=== PATIENT | male | born 1930 | race Two or more races ===

== ENCOUNTER → 2017-03-16 | Outpatient (CLI) | payer MEDICARE ==
[2017-03-16 09:26] LABS: Basophils # (auto) 0 uL; Basophils % (auto) 0.6 % (0.0-2.0); CONDITION Y; Eosinophils # (auto) 0.2 uL; Eosinophils % (auto) 4.5 % (0.0-7.0); Hemoglobin 14.5 g/dL (13.5-17.5); Lymphocytes # (auto) 2.2 uL; Lymphocytes % (auto) 40.2 % (10.0-50.0); Mean Corpuscular Hemoglobin 33.5 pg (28.0-32.0); Mean Corpuscular Hgb Conc. 33.8 g/dL (32.0-36.0); Mean Corpuscular Volume 99.2 fL (80.0-100.0); Mean Platelet Volume 7.8 fL (7.4-10.4); Monocytes # (auto) 0.6 uL; Monocytes % (auto) 10.4 % (0.0-12.0); Neutrophils # (auto) 2.4 uL; Neutrophils % (auto) 44.3 % (37.0-80.0); Platelet Count (auto) 248 10^3/uL (140-450); Red Cell Distribution Width 15.5 % (11.6-16.0); Urine Bilirubin Negative (Negative); Urine Blood Negative /uL (Negative); Urine Color Yellow (Yellow); Urine Glucose Normal (Normal); Urine Ketone Negative (Negative); Urine Nitrite Negative (Negative); Urine RBC 1 /hpf (0 - 3); Urine Squamous Epithelial Cell FEW /hpf (<5); Urine Urobilinogen Normal (Negative); Urine pH 7.5 (5.0-8.0); White Blood Cell 5.5 10^3/uL (4.4-10.8)
[2017-03-16 09:51] LABS: Albumin 3.6 g/dL (3.4-5.0); BUN/Creatinine Ratio 33.3; Bilirubin, Total 0.8 mg/dL (0.2-1.0); Potassium 4.4 mmol/L (3.5-5.1); Total Protein 6.9 g/dL (6.4-8.2)
== END | disposition home or self-care (01) ==
LOC: LAB 08:19
PROVIDERS: ATTEND Internal Medicine
DX: Z00.00 Encounter for general adult medical examination without abnormal findings (principal); I10 Essential (primary) hypertension; E78.2 Mixed hyperlipidemia; E55.9 Vitamin D deficiency, unspecified
CPT/HCPCS: 36415; 80053; 80061; 81001; 82306; 84153; 84443; 85025

== ENCOUNTER 2017-04-29 16:50 | Emergency (ER) | payer OTHER ==
[~2017-04-29] VITALS: Ht 170.2 cm; Wt 54.4 kg
[2017-04-29] MEDS ORDERED: KETOROLAC TROMETH 60MG/2ML VIAL IM ONE (19:30)
[2017-04-29] MEDS ORDERED: TETANUS-DIPTH-ACEL PERTUSSIS 0.5ML SYRG IM ONE (19:30)
[2017-04-29] MEDS ORDERED: BACITRACIN TOP OINT 1 UD PKG TOP ONE (19:30)
[2017-04-29 20:00] VITALS: BP 106/58
[2017-04-29] MEDS ORDERED: NEOMYCIN-BACITRACIN-POLYM 15GM TOP OINT TOP ONE (20:22)
== END 2017-04-29 20:52 | disposition home or self-care (01) ==
LOC: EDBD 16:50 → ER 16:58
DX: S01.01XA Laceration without foreign body of scalp, initial encounter (principal); E03.9 Hypothyroidism, unspecified; W11.XXXA Fall on and from ladder, initial encounter; Y93.89 Activity, other specified; Y99.8 Other external cause status; Y92.89 Other specified places as the place of occurrence of the external cause
CPT/HCPCS: 12004; 70450; 72125; 82962; 90471; 90715; 96372; 99284; J1885

== ENCOUNTER 2019-12-10 12:23 | Inpatient (IN) | payer OTHER, MEDICAID ==
[~2019-12-10] VITALS: Ht 157.5 cm; Wt 52.4 kg
[2019-12-10] MEDS ORDERED: FLEET ENEMA(ADULT) 135 ML PR ONE (14:30)
[2019-12-10 15:31] LABS: Urine Bacteria FEW /hpf (None Seen); Urine Blood 2+ /uL (Negative); Urine Mucus MODERATE (None Seen); Urine WBC 22 /hpf (0 - 3)
[2019-12-10 15:44] LABS: Basophils # (auto) 0 10 ^3/uL (0-0.2); Basophils % (auto) 0.2 % (0.0-2.0); Eosinophils # (auto) 0 10 ^3/uL (0-0.8); Hematocrit 44.3 % (41.0-53.0); Hemoglobin 15.2 g/dL (13.5-17.5); Lymphocytes # (auto) 1.4 10 ^3/uL (0.4-5.4); Lymphocytes % (auto) 7.1 % (10.0-50.0); Mean Corpuscular Hemoglobin 33.7 pg (28.0-32.0); Mean Corpuscular Hgb Conc. 34.2 g/dL (32.0-36.0); Mean Corpuscular Volume 98.5 fL (80.0-100.0); Monocytes # (auto) 1.4 10 ^3/uL (0-1.3); Monocytes % (auto) 7.4 % (0.0-12.0); Neutrophils # (auto) 16.3 10 ^3/uL (1.6-8.6); Neutrophils % (auto) 85.3 % (37.0-80.0); Platelet Count (auto) 208 10^3/uL (140-450); Red Blood Cells 4.49 10^6/uL (4.5-5.90); Red Cell Distribution Width 14.3 % (11.8-14.3); White Blood Cell 19.1 10^3/uL (4.4-10.8)
[2019-12-10] MEDS ORDERED: MORPHINE SULF INJ 2 MG/ML SYRINGE 1ML IV ONE (15:45)
[2019-12-10] MEDS ORDERED: SODIUM CHLORIDE 0.9% 1,000 ML IV ONE (15:45)
[2019-12-10] MEDS ORDERED: ONDANSETRON HCL 4 MG/2 ML VIAL IV ONE (16:00)
[2019-12-10] MEDS ORDERED: HYDROcodone-ACET 5/325MG TAB PO ONE (16:00)
[2019-12-10 16:01] LABS: Albumin 3.4 g/dL (3.4-5.0); Calcium 8.4 mg/dL (8.5-10.1); Potassium 3.8 mmol/L (3.5-5.1)
[2019-12-10 16:04] LABS: BUN/Creatinine Ratio 19.7; Bilirubin, Total 1.5 mg/dL (0.2-1.0); Total Protein 7.1 g/dL (6.4-8.2)
[2019-12-10] MEDS ORDERED: MORPHINE SULF INJ 2 MG/ML SYRINGE 1ML IV PRN (16:15)
[2019-12-10] MEDS ORDERED: NITROGLYCERIN 0.4 MG SL TAB SL PRN (16:15)
[2019-12-10] MEDS ORDERED: SODIUM CHLORIDE 0.9% 500 ML IV ONE ×2 (16:30→19:45)
[2019-12-10] MEDS ORDERED: BISACODYL 10 MG RECT SUPP PR PRN (16:30)
[2019-12-10] MEDS ORDERED: ONDANSETRON HCL 4 MG/2 ML VIAL IV PRN (16:30)
[2019-12-10] MEDS ORDERED: BISACODYL 10 MG RECT SUPP PR ONE (16:30)
[2019-12-10] MEDS ORDERED: HYDROcodone-ACET 5/325MG TAB PO PRN (16:30)
[2019-12-10] MEDS ORDERED: LEVO88TA4 PO (17:54)
[2019-12-10 18:01] LABS: INR 1.25 (0.9-1.15); Partial Thromboplastin Time 38.5 sec (23.64-32.05)
[2019-12-10 18:05] VITALS: BP 90/52
--- NOTE | 2019-12-10 18:05 | NUR ---
Telemetry admit from [facility] admitted to Telemetry unit. Patient oriented to [facility] RN primary RN, unit, room, bed, and unit policies regarding patient care and visiting hours. Patient currently not connected to Tele monitor. Will request Tele box. Patient weighed by bedscale, and encouraged to call if they need something. All questions and concerns addressed, patient verbalized understanding.
--- NOTE | 2019-12-10 18:25 | NUR ---
Tele box requested, awaiting response.
[2019-12-10] MEDS: SODIUM CHLORIDE 0.9% 1,000 ML IV SCH (18:42)
--- NOTE | 2019-12-10 18:50 | NUR ---
Re: Tele monitor Tele box # [id number] received, patient connected to monitor. Patients current heart rhythm is A-fib, HR 158, BP 90/56. Cardiology RAILROAD WATCHMAN Hannah made aware.
[2019-12-10] MEDS: cefTRIAXone 1GM/50ML D5W 50 ML IV SCH (19:00)
[2019-12-10] MEDS ORDERED: DIGOXIN (250MCG/ML) 2 ML AMPULE IV ONE (19:45)
[2019-12-10] MEDS: TAMSULOSIN HYDROCHLORIDE 0.4 MG CAP PO SCH (19:46)
--- NOTE | 2019-12-10 20:11 | NUR ---
EKG DONE, AFIB W/RVR 130-140S FIELD CROP FARMER SPANN AT BEDSIDE AND MADE AWARE. RECEIVED ORDER FOR DIGOXIN 500MCG IVP PRESCRIBED. PATIENT TOLERATED WELL, HR CAME DOWN 110-120S. RECEIVED ORDERS FOR BOLUS 500ML NS BOLUS, INITIATED BOLUS. WILL CONTINUE TO MONITOR PATIENT.
[2019-12-10 21:38] VITALS: BP 99/56
[2019-12-10 22:00] VITALS: BP 99/56
[2019-12-10] MEDS: ACETAMINOPHEN 500 MG TAB PO PRN (22:15)
[2019-12-10] MEDS: metroNIDAZOLE 500MG/100ML 100 ML IV SCH (22:15)
[2019-12-10] MEDS: CARVEDILOL 3.125 MG TAB PO SCH (22:16)
[2019-12-10] MEDS: ENOXAPARIN SOD 60 MG/0.6 ML SYRINGE SC SCH (22:19)
[2019-12-11] MEDS: DIGOXIN (250MCG/ML) 2 ML AMPULE IV SCH ×3 (01:00→13:00)
--- NOTE | 2019-12-11 01:00 | NUR ---
HELD DIGOXIN HR SR 70S.
--- NOTE | 2019-12-11 02:31 | NUR ---
PATIENT GETTING OUT OF BED ALARM GOING OFF. PATIENT STATES HE JUST WANTED TO SIT UP IN BED. REORIENTED PATIENT AND PLAN OF CARE PATIENT STATES HE WILL GO BACK TO BED. BED ALARM PLACED.
[2019-12-11 05:00] VITALS: BP 86/46
[2019-12-11 05:01] LABS: Basophils # (auto) 0 10 ^3/uL (0-0.2); Basophils % (auto) 0.1 % (0.0-2.0); Eosinophils # (auto) 0 10 ^3/uL (0-0.8); Eosinophils % (auto) 0.1 % (0.0-7.0); Hematocrit 37.7 % (41.0-53.0); Hemoglobin 12.7 g/dL (13.5-17.5); Lymphocytes # (auto) 1.3 10 ^3/uL (0.4-5.4); Lymphocytes % (auto) 8.7 % (10.0-50.0); Mean Corpuscular Hemoglobin 33.4 pg (28.0-32.0); Mean Corpuscular Hgb Conc. 33.8 g/dL (32.0-36.0); Mean Corpuscular Volume 98.9 fL (80.0-100.0); Monocytes # (auto) 1.2 10 ^3/uL (0-1.3); Monocytes % (auto) 8.1 % (0.0-12.0); Platelet Count (auto) 175 10^3/uL (140-450); Red Blood Cells 3.81 10^6/uL (4.5-5.90); Red Cell Distribution Width 14.5 % (11.8-14.3); White Blood Cell 14.5 10^3/uL (4.4-10.8)
[2019-12-11] MEDS: SODIUM CHLORIDE 0.9% 1,000 ML IV SCH ×2 (05:03→12:18)
[2019-12-11] MEDS: metroNIDAZOLE 500MG/100ML 100 ML IV SCH (05:03)
[2019-12-11 05:21] LABS: Potassium 3.9 mmol/L (3.5-5.1)
[2019-12-11 05:25] LABS: BUN/Creatinine Ratio 31.8; Calcium 7.5 mg/dL (8.5-10.1)
--- NOTE | 2019-12-11 06:53 | NUR ---
VENOUS US BLE AT BEDSIDE TO R/O DVT PATIENT D-DIMER ELEVATED 1.61
--- NOTE | 2019-12-11 06:55 | NUR ---
PATIENT ORDER FOR DIGOXIN DUE AT 0700 BEING HELD HR SR 70-90 W EXERTION.
--- NOTE | 2019-12-11 07:15 | NUR ---
Opening shift note Assumed care from NOC RN. Patient is AOx4, no s/s of SOB, distress or pain noted at this time. Bed is in lowest locked position, call light is within reach, and side rails are up x2. Updated patient on plan of care and patient verbalized understanding. I will continue to monitor Q1hr and PRN.
[2019-12-11 08:55] VITALS: BP 80/38
[2019-12-11] MEDS ORDERED: cefTRIAXone 1GM/50ML D5W 50 ML IV SCH (09:00)
--- NOTE | 2019-12-11 09:00 | NUR ---
Low B/P VS, BP was 77/42, rechecked was 80/38, HR 89 bpm. Patient is asymptomatic no s/s of distress noted at this time. I will reassess the patient PRN.
--- NOTE | 2019-12-11 09:30 | NUR ---
B/P Reassessment VS 77/40 heart rate is 69. Held scheduled Coreg, i will continue to monitor Q1HR and PRN.
--- NOTE | 2019-12-11 09:40 | NUR ---
B/P reassessment BP now at 88/55 patient is still asymptomatic, and receiving normal saline at 100ml. I will continue to monitor q1hr and PRN.
--- NOTE | 2019-12-11 09:47 | NUR ---
Received call from MD Dr. Boudreaux called regarding potential surgery this afternoon or tomorrow morning. Per MD patient needs to be cleared by cardiology for surgery, I will contact WILLAM Bowser regarding clearance.
[2019-12-11] MEDS: ENOXAPARIN SOD 60 MG/0.6 ML SYRINGE SC SCH ×2 (09:51→21:43)
[2019-12-11] MEDS: PANTOPRAZOLE 40 MG/10 ML VIAL INJ IV SCH (09:51)
[2019-12-11] MEDS: cefTRIAXone 1GM/50ML D5W 50 ML IV SCH (09:51)
[2019-12-11] MEDS: CARVEDILOL 3.125 MG TAB PO SCH ×2 (09:52→21:47)
[2019-12-11] MEDS ORDERED: FAMOTIDINE 20 MG TAB PO SCH (10:00)
--- NOTE | 2019-12-11 10:18 | NUR ---
Provider Rounding Spoke with DESIZING MACHINE OPERATOR Niels, per DESIZING MACHINE OPERATOR patient is still under cardiac work up for clearance. Per DESIZING MACHINE OPERATOR patient is to have B/P monitored 3 consecutive times for hypotension, repeat EKG done today, and have an echo done. I will follow through with orders.
[2019-12-11] MEDS ORDERED: PIPERACILLIN-TAZO 4.5GM 100 ML IV ONE (10:45)
--- NOTE | 2019-12-11 12:00 | NUR ---
Noon Vitals Patients B/P is at 94/46 and heart rate is 69 bpm. Patient is asymptomatic, i will continue to monitor Q1HR and PRN.
--- NOTE | 2019-12-11 12:30 | NUR ---
B/P Reassessment. B/P is not at 82/53, HR is at 116. Patient is asymptomatic. I will updated MUSCULOSKELETAL PHYSIOTHERAPIST Bowser and continue to monitor patient Q1HR and PRN.
[2019-12-11 12:33] VITALS: BP 94/46
--- NOTE | 2019-12-11 12:50 | NUR ---
Dr. Boudreaux at bedside MD updated patient on surgery being planned for tomorrow. Patient verbalized understanding. Per MD patient is to be NPO, i will follow through.
--- NOTE | 2019-12-11 13:00 | NUR ---
Provider Rounding PRESS BOX CUSTODIAN Niels rounding, i updated her on patient status . Per PRESS BOX CUSTODIAN patient may need treatment for low B/P. No new orders at this time.
[2019-12-11 13:56] LABS: BUN/Creatinine Ratio 31.5; Calcium 7.6 mg/dL (8.5-10.1)
--- NOTE | 2019-12-11 14:10 | NUR ---
Received call PLATER HOT DIP Niels called per PLATER HOT DIP patient is to be transferred to [facility] to treat hypotension. I will follow through with orders.
[2019-12-11] MEDS ORDERED: NOREPINEPHRINE 8 MG/250ML KIT 250 ML IV SCH ×3 (14:15→17:45)
--- NOTE | 2019-12-11 16:30 | NUR ---
Patient tore out IV site while walking to the restroom, I will insert new IV access.
--- NOTE | 2019-12-11 16:45 | NUR ---
IV insertion IV access obtained, via clean sterile technique by inserting 22 gauge catheter at LFA after 1 attempt. IV secured properly. No trauma to site. Patient tolerated well.
[2019-12-11 16:59] VITALS: BP 98/54
--- NOTE | 2019-12-11 17:40 | NUR ---
Spoke with family Spoke with patients granddaughter, updated her on plan of care. She verbalized understanding.
[2019-12-11] MEDS: TAMSULOSIN HYDROCHLORIDE 0.4 MG CAP PO SCH (18:00)
--- NOTE | 2019-12-11 18:00 | NUR ---
B/P Assessment Patients blood pressure is 105/55, HR 89. Patient is asymptomatic. Patient is on NS at 100ml/ hr.
[2019-12-11] MEDS: PIPERACILLIN-TAZO 4.5GM 100 ML IV SCH ×2 (18:49→21:42)
--- NOTE | 2019-12-11 19:07 | NUR ---
Closing shift note Endorsed care to NOC RN. Patient is AOx4 no S/S of pain or distress noted at this time.
[2019-12-11] MEDS: MORPHINE SULF INJ 2 MG/ML SYRINGE 1ML IV PRN (19:58)
[2019-12-11 20:06] VITALS: BP 102/58
--- NOTE | 2019-12-11 21:03 | NUR ---
OBTAINED TELEPHONE CONSENT FROM SPOUSE ALVIN COREY FOR PATIENT TO HAVE LAPRASCOPIC POSSIBLY OPEN CHOLECYSTECTOMY WITH ANESTHESIA AND POSSIBLE TRANFUSION OF BLOOD AND BLOOD PRODUCTS IF NEEDED. SPOUSE ALVIN VERBALIZES UNDERSTANDING NO QUESTIONS ASKED.
[2019-12-11 21:33] VITALS: BP_SYST 93; BP_SYST 98; BP_DIAS 49; BP_DIAS 62
[2019-12-12 05:00] VITALS: BP 109/59
[2019-12-12] MEDS: SODIUM CHLORIDE 0.9% 1,000 ML IV SCH ×3 (05:20→21:15)
[2019-12-12 05:26] LABS: Basophils # (auto) 0 10 ^3/uL (0-0.2); Basophils % (auto) 0.1 % (0.0-2.0); Eosinophils # (auto) 0 10 ^3/uL (0-0.8); Eosinophils % (auto) 0.1 % (0.0-7.0); Hematocrit 36.1 % (41.0-53.0); Hemoglobin 12.2 g/dL (13.5-17.5); Lymphocytes # (auto) 0.8 10 ^3/uL (0.4-5.4); Lymphocytes % (auto) 6.4 % (10.0-50.0); Mean Corpuscular Hemoglobin 33.3 pg (28.0-32.0); Mean Corpuscular Hgb Conc. 33.7 g/dL (32.0-36.0); Monocytes # (auto) 1.2 10 ^3/uL (0-1.3); Monocytes % (auto) 9.9 % (0.0-12.0); Neutrophils # (auto) 9.9 10 ^3/uL (1.6-8.6); Neutrophils % (auto) 83.5 % (37.0-80.0); Platelet Count (auto) 183 10^3/uL (140-450); Red Blood Cells 3.65 10^6/uL (4.5-5.90); Red Cell Distribution Width 14.3 % (11.8-14.3); White Blood Cell 11.8 10^3/uL (4.4-10.8)
[2019-12-12] MEDS: PIPERACILLIN-TAZO 4.5GM 100 ML IV SCH ×3 (05:29→21:16)
[2019-12-12] MEDS: MORPHINE SULF INJ 2 MG/ML SYRINGE 1ML IV PRN ×3 (05:30→19:26)
[2019-12-12 05:44] LABS: Albumin 2.3 g/dL (3.4-5.0); Calcium 7.4 mg/dL (8.5-10.1); Potassium 3.7 mmol/L (3.5-5.1)
[2019-12-12 05:49] LABS: BUN/Creatinine Ratio 31.3; Bilirubin, Total 1.3 mg/dL (0.2-1.0)
--- NOTE | 2019-12-12 07:20 | NUR ---
Opening shift note Care of patient assumed from NOC RN Emma. Patient is AOX4 no s/s of distress, sob or pain noted. tourist camp attendant at bedside. Bed is in lowest locked position, side rails up x2, and call light is within reach. Updated patient on plan of care, i will continue to monitor q1hr and PRN.
--- NOTE | 2019-12-12 09:50 | NUR ---
Patient off unit Patient taken to pre-op in hospital bed with assistance from YOSSI Juarez. No s/s of distress noted at time of departure.
[2019-12-12] MEDS ORDERED: ceFAZolin 1GM/50ML 50 ML IV ONE (09:58)
[2019-12-12] MEDS: ENOXAPARIN SOD 60 MG/0.6 ML SYRINGE SC SCH ×2 (10:00→21:17)
[2019-12-12] MEDS ORDERED: ROCURONIUM 10MG/ML 10ML VIAL IV ONE (10:00)
[2019-12-12] MEDS: CARVEDILOL 3.125 MG TAB PO SCH ×2 (10:00→14:24)
[2019-12-12] MEDS: PANTOPRAZOLE 40 MG/10 ML VIAL INJ IV SCH (10:00)
--- NOTE | 2019-12-12 10:44 | NUR ---
Patient is down in OR for a procedure. Addendum: 12/12/19 at 1120 by ARDEN SIGALA RN Amended: Links added.
--- NOTE | 2019-12-12 11:44 | NUR ---
patient off unit for surgery. Addendum: 12/12/19 at 1522 by ARDEN SIGALA RN Amended: Links added.
[2019-12-12] MEDS ORDERED: ETOMIDATE (2MG/ML) 20ML VIAL IV ONE (11:46)
[2019-12-12] MEDS ORDERED: LIDOCAINE 1% (LOCAL ANESTH.) PF 5ml SDV ONE (11:48)
[2019-12-12] MEDS ORDERED: SUCCINYLCHOLINE CHLORIDE 20 MG/ML 10ML VIAL IV ONE (11:48)
[2019-12-12] MEDS ORDERED: fentaNYL CITRATE 100 MCG/2 ML VL ONE (12:08)
[2019-12-12] MEDS ORDERED: ONDANSETRON HCL 4 MG/2 ML VIAL IV PRN (12:15)
[2019-12-12] MEDS ORDERED: NALOXONE HCL 0.4 MG/ML VIAL IV PRN (12:15)
[2019-12-12] MEDS ORDERED: HYDROmorphone HCL 2 MG/ML VL IV PRN ×2 (12:15)
[2019-12-12] MEDS ORDERED: DEXTROSE 50% SYRINGE 50 ML IV ONE (12:43)
--- NOTE | 2019-12-12 13:42 | NUR ---
Received report Velma THOMAS from PACU gave me post op report. Patient is status post laparoscopy-cholecystomy. Patient has an abdominal binder on, and telfa gauze with Tegaderm over 3 incisions, left lower quadrant has a JOSHUA drain that has output 45ml of sanguinous fluid, JOSHUA dressing was reinforced with extra gauze. Patient is on 1l NC with O2 saturation of 98% Patients vitals are 122/61, HR 70 bpm.
--- NOTE | 2019-12-12 13:50 | NUR ---
Patient back on unit patient brought back up to floor by WILLIAM Buckner. Assessed incision with Sita at bedside. Undid binder and 3 abdominal incision noted. Each with telfa gauze and Tegaderm in place and they are clean dry and intact. Left lower abdominal incision has a JOSHUA drain that is draining serous fluid, dressing reinforced with gauze d/t moderate serosanguineous leakage. Abdominal binder was placed again. I will continue to monitor q1hr and PRN.
--- NOTE | 2019-12-12 13:52 | NUR ---
POST OP VITALS Patient is AOx4, No s/s of distress noted. Post op vitals were 136/80, hr 76 bpm, 18 Respirations, and o2 saturation of 98% on room air. Patient complains of 9/10 pain. I will provide pain medication as ordered. I will continue to monitor Q1hr and PRN.
--- NOTE | 2019-12-12 14:50 | NUR ---
NANI rodríguez regarding patient returning from OR. Awaiting call back.
[2019-12-12 17:00] VITALS: BP 122/60
[2019-12-12] MEDS: TAMSULOSIN HYDROCHLORIDE 0.4 MG CAP PO SCH (18:21)
--- NOTE | 2019-12-12 19:15 | NUR ---
end of shift note care of patient endorsed to noc WILLIAM rosales. No s/s of distress noted at this time.
--- NOTE | 2019-12-12 19:26 | NUR ---
Opening Shift Note Assumed care of patient, awake and alert. No S/S of distress/SOB or pain. Instructed on POC and to call for assist PRN, will continue to monitor for changes Q1hr and PRN.
--- NOTE | 2019-12-12 19:45 | NUR ---
PAIN PATIENT C/O 10/10 ABDOMINAL PAIN REQUESTING PAIN MEDICATION. PATIENT S/P LAPRASCOPIC CHOLECYSTECTOMY. ADMINISTERED MORPHINE 1MG IV PRESCRIBED. PATIENT TOLERATED WELL, SITTER AT BEDSIDE FOR PATIENT SAFETY WILL CONTINUE TO MONITOR PATIENT.
--- NOTE | 2019-12-12 20:30 | NUR ---
PATIENT BELONGINGS SPOKE WITH DAUGHTER PA ON THE PHONE REGARDING PATIENT STATUS, PLAN OF CARE, AND PATIENT BELONGINGS. DAUGHTER STATES SHE CAME BY AROUND 11-12PM DROPPED OFF PATIENT CLOTHING AND SOME HYGIENE PRODUCTS AND HAIR BRUSH TO OPERATIONS CHIEF. WENT TO CHECK PATIENT ROOM NO BAG OF PATIENT BELONGINGS THAT WAS MENTIONED WAS FOUND IN THE ROOM. SPOKE WITH YOSSI DEL ROSARIO REGARDING PATIENT BELONGING SHE STATES SHE LOOKED IN THE ROOM AND NO WHERE TO BE FOUND. NURSE MIGUEL ÁNGEL STATES SHE SPOKE TO PA ON THE PHONE THAT A FRIEND OF HERS CAME BY TO DROP OFF SOME OF THE THE PATIENT BELONGINGS AT THE OPERATIONS CHIEF. SPOKE WITH SECURITY AND ASKED ABOUT A BAG WITH PATIENT BELONGING WAS IN THEIR POSSESSIONS OR AT THE OPERATIONS CHIEF. WILL SPEAK WITH NURSE HOPPER IN AM.
[2019-12-12] MEDS: ACETAMINOPHEN 500 MG TAB PO PRN (21:22)
[2019-12-12 22:00] VITALS: BP 120/70
[2019-12-13] MEDS: MORPHINE SULF INJ 2 MG/ML SYRINGE 1ML IV PRN ×3 (03:24→19:56)
--- NOTE | 2019-12-13 03:30 | NUR ---
PAIN PATIENT C/O 10/10 ABDOMINAL PAIN REQUESTING PAIN MEDICATION. ADMINISTERED MORPHINE 1MG IV PRESCRIBED. PATIENT TOLERATED WELL, SITTER AT BEDSIDE FOR PATIENT SAFETY WILL CONTINUE TO MONITOR PATIENT.
[2019-12-13] MEDS: SODIUM CHLORIDE 0.9% 1,000 ML IV SCH ×2 (04:18→14:09)
[2019-12-13 05:00] VITALS: BP 104/63
[2019-12-13] MEDS: PIPERACILLIN-TAZO 4.5GM 100 ML IV SCH ×3 (05:11→21:10)
[2019-12-13 06:20] LABS: Basophils # (auto) 0 10 ^3/uL (0-0.2); Basophils % (auto) 0.2 % (0.0-2.0); Eosinophils # (auto) 0 10 ^3/uL (0-0.8); Eosinophils % (auto) 0.3 % (0.0-7.0); Hematocrit 36.6 % (41.0-53.0); Hemoglobin 12.6 g/dL (13.5-17.5); Lymphocytes # (auto) 1.1 10 ^3/uL (0.4-5.4); Lymphocytes % (auto) 10.6 % (10.0-50.0); Mean Corpuscular Hemoglobin 33.8 pg (28.0-32.0); Mean Corpuscular Hgb Conc. 34.4 g/dL (32.0-36.0); Mean Corpuscular Volume 98.3 fL (80.0-100.0); Monocytes # (auto) 1.3 10 ^3/uL (0-1.3); Monocytes % (auto) 12.3 % (0.0-12.0); Neutrophils # (auto) 8.1 10 ^3/uL (1.6-8.6); Neutrophils % (auto) 76.6 % (37.0-80.0); Nucleated Red Blood Cells % 0.1 %; Platelet Count (auto) 200 10^3/uL (140-450); Red Blood Cells 3.72 10^6/uL (4.5-5.90); Red Cell Distribution Width 14.5 % (11.8-14.3); White Blood Cell 10.6 10^3/uL (4.4-10.8)
[2019-12-13 06:33] LABS: Calcium 7.3 mg/dL (8.5-10.1); Potassium 3.6 mmol/L (3.5-5.1)
[2019-12-13 06:38] LABS: BUN/Creatinine Ratio 24.6; Bilirubin, Total 1.2 mg/dL (0.2-1.0); Total Protein 4.9 g/dL (6.4-8.2)
--- NOTE | 2019-12-13 08:00 | NUR ---
Opening Shift Note Assumed care of patient, awake and alert. No S/S of distress/SOB or pain. Bed in lowest/locked position, bed rails upx2, call light within reach. Instructed on POC and to call for assist PRN. Will continue to monitor for changes Q1hr and PRN.
[2019-12-13 09:00] VITALS: BP 111/62
[2019-12-13] MEDS: CARVEDILOL 3.125 MG TAB PO SCH ×2 (10:22→17:43)
[2019-12-13] MEDS: PANTOPRAZOLE 40 MG/10 ML VIAL INJ IV SCH (10:22)
[2019-12-13] MEDS: ENOXAPARIN SOD 60 MG/0.6 ML SYRINGE SC SCH (10:23)
--- NOTE | 2019-12-13 10:45 | NUR ---
PAIN PATIENT C/O 9/10 ABDOMINAL PAIN REQUESTING PAIN MEDICATION. ADMINISTERED MORPHINE 1MG IV PRESCRIBED. PATIENT TOLERATED WELL, SITTER AT BEDSIDE FOR PATIENT SAFETY WILL CONTINUE TO MONITOR PATIENT.
--- NOTE | 2019-12-13 12:06 | NUR ---
assessment Patient is a 89 year old Macedonian speaking male. Wendy translated for us. Per patient prior to admission he lived home with his daughter Mirna and functioned with family assistance. Per patient he has a fww for home use. Patient informed me he feels safe returning home on discharge. I informed patient his post discharge needs to be determined prior to discharge. I informed patient he has a right to speak to a social media senior associate regarding all care. I informed patient he has a right to participate in any and all discharge planning. Patient does not have a POA and advanced directive. I have offered patient information on POA and advanced directives. I informed the patient the advantages and benefits of having an Advanced Directive. Patient verbalized understanding and agreed to discharge plan. Addendum: 12/13/19 at 1209 by Rose SORIANO Amended: Links added.
[2019-12-13 13:00] VITALS: BP 100/55
--- NOTE | 2019-12-13 15:48 | NUR ---
DRESSING/JOSHUA ABDOMINAL DRESSING CHANGED PER DR KOTHARI. NEW ABDOMINAL BINDER PLACED. PATIENT TOLERATED WELL 50 ML SANGUINOUS FLUID EMPTIED.
[2019-12-13 17:00] VITALS: BP 92/58
[2019-12-13] MEDS: TAMSULOSIN HYDROCHLORIDE 0.4 MG CAP PO SCH (17:43)
[2019-12-13] MEDS ORDERED: FUROSEMIDE 20 MG/2 ML VIAL IV ONE (19:30)
[2019-12-13] MEDS ORDERED: FUROSEMIDE 40 MG/4 ML VIAL IV ONE (19:30)
--- NOTE | 2019-12-13 20:05 | NUR ---
SOB/PAIN PATIENT C/O 8/10 ABDOMINAL PAIN AND HAVING SOB. PATIENT LUNG SOUNDS BILATERAL CRACKLES TACHYPNEIC @ 22. INFORMED MULTIPLE TUBE WINDING MACHINE OPERATOR MARIA INES FOR CARDIOLOGY. RECEIVED ORDER TO ADMINISTERED LASIX 40MG IV NOW, CXR, BNP, AND START PATIENT LASIX 20 IV BID. ADMINISTERED MORPHINE 1MG IV @ 1953 FOR 8/10 ABDOMINAL PAIN AND LASIX 40MG IV @ 2003 PRESCRIBED. PLACED PATIENT ON O2 3LNC. SITTER AT BEDSIDE INFORMED HER PATIENT IS ON LASIX. WILL CONTINUE TO MONITOR PATIENT.
[2019-12-13] MEDS: APIXABAN 2.5 MG TAB PO SCH (21:10)
[2019-12-13 22:00] VITALS: BP 116/97
[2019-12-13] MEDS ORDERED: ENOXAPARIN SOD 60 MG/0.6 ML SYRINGE SC SCH (22:00)
[2019-12-14 05:01] VITALS: BP 99/57
[2019-12-14] MEDS: PIPERACILLIN-TAZO 4.5GM 100 ML IV SCH ×3 (05:04→21:40)
[2019-12-14] MEDS: FUROSEMIDE 20 MG/2 ML VIAL IV SCH ×2 (05:12→17:37)
[2019-12-14 05:47] LABS: Basophils # (auto) 0 10 ^3/uL (0-0.2); Basophils % (auto) 0.2 % (0.0-2.0); Eosinophils # (auto) 0.1 10 ^3/uL (0-0.8); Eosinophils % (auto) 1.6 % (0.0-7.0); Hematocrit 34.6 % (41.0-53.0); Hemoglobin 11.9 g/dL (13.5-17.5); Lymphocytes # (auto) 1.3 10 ^3/uL (0.4-5.4); Lymphocytes % (auto) 14.2 % (10.0-50.0); Mean Corpuscular Hemoglobin 33.7 pg (28.0-32.0); Mean Corpuscular Hgb Conc. 34.4 g/dL (32.0-36.0); Mean Corpuscular Volume 97.9 fL (80.0-100.0); Monocytes # (auto) 1.3 10 ^3/uL (0-1.3); Neutrophils # (auto) 6.1 10 ^3/uL (1.6-8.6); Nucleated Red Blood Cells % 0.1 %; Platelet Count (auto) 217 10^3/uL (140-450); Red Blood Cells 3.54 10^6/uL (4.5-5.90); Red Cell Distribution Width 14.8 % (11.8-14.3); White Blood Cell 8.8 10^3/uL (4.4-10.8)
[2019-12-14] MEDS ORDERED: FUROSEMIDE 20 MG TAB PO SCH (06:00)
[2019-12-14 06:06] LABS: Calcium 7.5 mg/dL (8.5-10.1); Potassium 3.2 mmol/L (3.5-5.1)
[2019-12-14 06:09] LABS: BUN/Creatinine Ratio 22.4; Total Protein 4.9 g/dL (6.4-8.2)
[2019-12-14] MEDS: CARVEDILOL 3.125 MG TAB PO SCH ×2 (08:00→17:36)
[2019-12-14 09:00] VITALS: BP 97/58
[2019-12-14] MEDS: PANTOPRAZOLE 40 MG/10 ML VIAL INJ IV SCH (09:20)
[2019-12-14] MEDS: APIXABAN 2.5 MG TAB PO SCH ×2 (09:21→21:40)
[2019-12-14] MEDS ORDERED: POTASSIUM CHL 20 Meq TABLET PO ONE (10:45)
[2019-12-14] MEDS ORDERED: FUROSEMIDE 20 MG/2 ML VIAL IV ONE (10:45)
[2019-12-14] MEDS ORDERED: POTASSIUM EFFERVESENT TAB 25 MEQ PO ONE (11:45)
[2019-12-14 13:00] VITALS: BP 104/55
[2019-12-14] MEDS ORDERED: POLYETHYLENE GLYCOL 17 GM PWDR PO ONE (15:15)
[2019-12-14 17:00] VITALS: BP 105/55
[2019-12-14] MEDS: TAMSULOSIN HYDROCHLORIDE 0.4 MG CAP PO SCH (17:37)
--- NOTE | 2019-12-14 17:45 | NUR ---
JOSHUA 65 ML SANGUINOUS FLUID EMPTIED.
[2019-12-14 22:00] VITALS: BP 108/62
[2019-12-15 05:00] VITALS: BP 96/50
[2019-12-15] MEDS: PIPERACILLIN-TAZO 4.5GM 100 ML IV SCH ×3 (05:14→21:50)
[2019-12-15] MEDS: FUROSEMIDE 20 MG/2 ML VIAL IV SCH ×2 (05:17→17:31)
[2019-12-15 06:46] LABS: Basophils # (auto) 0 10 ^3/uL (0-0.2); Basophils % (auto) 0.3 % (0.0-2.0); Eosinophils # (auto) 0 10 ^3/uL (0-0.8); Hematocrit 33.6 % (41.0-53.0); Hemoglobin 11.5 g/dL (13.5-17.5); Lymphocytes % (auto) 8.8 % (10.0-50.0); Mean Corpuscular Hemoglobin 33.3 pg (28.0-32.0); Mean Corpuscular Hgb Conc. 34.3 g/dL (32.0-36.0); Mean Corpuscular Volume 97.1 fL (80.0-100.0); Monocytes % (auto) 8.4 % (0.0-12.0); Neutrophils # (auto) 9.7 10 ^3/uL (1.6-8.6); Neutrophils % (auto) 82.5 % (37.0-80.0); Platelet Count (auto) 259 10^3/uL (140-450); Red Blood Cells 3.46 10^6/uL (4.5-5.90); Red Cell Distribution Width 14.7 % (11.8-14.3); White Blood Cell 11.7 10^3/uL (4.4-10.8)
[2019-12-15 07:07] LABS: Albumin 1.9 g/dL (3.4-5.0); Calcium 7.9 mg/dL (8.5-10.1); Potassium 3.4 mmol/L (3.5-5.1)
[2019-12-15 07:11] LABS: Bilirubin, Total 0.7 mg/dL (0.2-1.0); Total Protein 5.2 g/dL (6.4-8.2)
[2019-12-15 08:00] VITALS: BP 104/57
[2019-12-15] MEDS: CARVEDILOL 3.125 MG TAB PO SCH ×3 (08:00→17:35)
--- NOTE | 2019-12-15 08:00 | NUR ---
ASSESSMENT NOTE PT IS ALERT ORIENTED X4, URUGUAYAN SPEAKING, WITH A SITTER SPEAKING URUGUAYAN, ABLE TO VERBALIS HIS NEEDS, AND SELF REPOSITION, ABDOMEN BINDER , 3 SMALL INCISIONS NOTED, WITH DRY DRESSING, RT UPPER ABDOMEN JOSHUA DRAINAGE, PAIN 210 AT THIS TIME, FALL RISK PRECAUTIONS, CALL LIGHT WITHIN REACH, SITTER AT BED SIDE AT ALL TIMES
[2019-12-15 09:00] VITALS: BP 104/57
--- NOTE | 2019-12-15 10:00 | NUR ---
PHYSICAL THERAPY ASSISTING PT TO GET OUT OF BED WITH FRONT WHEEL WALKER TO AMBULATE IN THE HALLWAYS, PT TOLERATED WELL
[2019-12-15] MEDS: PANTOPRAZOLE 40 MG/10 ML VIAL INJ IV SCH (10:04)
[2019-12-15] MEDS: APIXABAN 2.5 MG TAB PO SCH ×2 (10:04→21:50)
[2019-12-15] MEDS: MORPHINE SULF INJ 2 MG/ML SYRINGE 1ML IV PRN (10:16)
--- NOTE | 2019-12-15 12:47 | NUR ---
DR WHIPPLE AT BED SIDE FOLLOWING UP ON PT
[2019-12-15 13:00] VITALS: BP 100/58
[2019-12-15] MEDS ORDERED: POTASSIUM EFFERVESENT TAB 25 MEQ PO ONE (13:00)
[2019-12-15 17:00] VITALS: BP 108/60
[2019-12-15] MEDS: TAMSULOSIN HYDROCHLORIDE 0.4 MG CAP PO SCH (17:34)
--- NOTE | 2019-12-15 18:32 | NUR ---
PT CONTINUE STABLE, CONTINUE MONITORING
--- NOTE | 2019-12-15 20:06 | NUR ---
open note assumed care of pt. upon entering room pt is awake and alert x3. this nurse oriented pt as to todays date. pt has sitter at bedside. pt denies any pain at this time. pt speak greek, pourer bull ladle provided. pt updated on plan of care. pt has scd's on bilat. pt abdominal dressing clean dry intact. JOSHUA drain in place, this nurse emptied 50cc sanguineous fluid from JOSHUA. abdominal binder in place. pt bed locked, low and 2x rails up. this nurse encouraged pt and sitter to call as needed. this nurse to round q1hr and prn.
[2019-12-15 22:00] VITALS: BP 105/58
[2019-12-16 05:00] VITALS: BP 101/59
--- NOTE | 2019-12-16 05:12 | NUR ---
30cc sanguineous fluid emptied from JOSHUA
[2019-12-16] MEDS: FUROSEMIDE 20 MG/2 ML VIAL IV SCH (06:11)
[2019-12-16] MEDS: PIPERACILLIN-TAZO 4.5GM 100 ML IV SCH (06:11)
[2019-12-16 07:46] LABS: Basophils # (auto) 0 10 ^3/uL (0-0.2); Basophils % (auto) 0.2 % (0.0-2.0); Eosinophils # (auto) 0.1 10 ^3/uL (0-0.8); Eosinophils % (auto) 1.8 % (0.0-7.0); Hematocrit 37.5 % (41.0-53.0); Lymphocytes % (auto) 24.9 % (10.0-50.0); Mean Corpuscular Hemoglobin 33.8 pg (28.0-32.0); Mean Corpuscular Hgb Conc. 34.5 g/dL (32.0-36.0); Mean Corpuscular Volume 97.8 fL (80.0-100.0); Monocytes % (auto) 13.1 % (0.0-12.0); Neutrophils # (auto) 4.7 10 ^3/uL (1.6-8.6); Nucleated Red Blood Cells % 0.1 %; Platelet Count (auto) 343 10^3/uL (140-450); Red Blood Cells 3.84 10^6/uL (4.5-5.90); Red Cell Distribution Width 14.7 % (11.8-14.3); White Blood Cell 7.8 10^3/uL (4.4-10.8)
[2019-12-16] MEDS: CARVEDILOL 3.125 MG TAB PO SCH (08:00)
--- NOTE | 2019-12-16 08:00 | NUR ---
Opening Note Assumed care of patient, he is A & O x 3, donatoter is at bedside for safety, per NOC shift patient shows more disorientation at night. POC discussed with patient, he is primarily [place] citizen speaking. Ann Butcher at bedside able to translate for this RN. Patient understands, he says he is ready to go home today. Will await doctors orders. Bed is in lowest, locked position, call light within reach. Patient is up to chair at this time. Will continue to monitor Q1h and PRN.
[2019-12-16 08:02] LABS: BUN/Creatinine Ratio 25.8; Calcium 7.9 mg/dL (8.5-10.1); Potassium 3.3 mmol/L (3.5-5.1)
--- NOTE | 2019-12-16 08:30 | NUR ---
Medication held, blood pressure decreased Coreg Held at 0800, BP 99/57, HR 65. Will notify
[2019-12-16 09:00] VITALS: BP 99/57
[2019-12-16] MEDS: PANTOPRAZOLE 40 MG/10 ML VIAL INJ IV SCH (09:09)
[2019-12-16] MEDS: APIXABAN 2.5 MG TAB PO SCH (09:09)
--- NOTE | 2019-12-16 09:50 | NUR ---
Family member called, wants to pick him up and take him home. Patient's daughter Mirna called, she stated "he called me this morning saying I want to go home. I want to come get him, what do I have to sign to come and get him?". This RN informed the family member that the patient is in no distress at this time, this RN is waiting for the doctor to decide if he will go home today. The family member is adamant, she wants to come and get him. Will notify MD and await orders.
--- NOTE | 2019-12-16 10:45 | NUR ---
Spoke to Dr. Blanca Informed Dr. Blanca regarding patient request to go home and family member request for patient to be discharged. I will page Dr. Boudreaux regarding patient clearance to D/C. Will advance patient diet per orders, which were read back and verified. Will update family as soon as this RN hears from Dr. Boudreaux.
[2019-12-16] MEDS ORDERED: POTASSIUM EFFERVESENT TAB 25 MEQ PO ONE (11:00)
[2019-12-16] MEDS ORDERED: LEVOTHYROXINE SODIUM 88 MCG TAB PO ONE (11:00)
--- NOTE | 2019-12-16 11:09 | NUR ---
Dr. Blanca at bedside Patient okay to be discharged, patient will make an appointment with Dr. Boudreaux office tomorrow. Will await orders.
[2019-12-16 13:00] VITALS: BP 112/71
--- NOTE | 2019-12-16 13:55 | NUR ---
Discharge instructions given as ordered. Encourage to follow up with PMD as instructed. All questions and concerns addressed, Ann SY translated discharge instructions to daughter/caregiver over the phone. Family/Patient verbalized understanding. Medication reconciliation form completed and copy given to patient. Home medications held in Pharmacy returned to patient, valuables given and signed for by patient. IV removed with catheter intact, pressure dressing applied. Telemetry unit returned to ICU. Patient taken to vehicle via wheelchair with all personal belongings, accompanied by staff member. No distress noted at time of departure.
--- NOTE | 2019-12-16 14:00 | NUR ---
Spoke to family downstairs upon discharge Educated family to drain JOSHUA drain, to keep clean, dry and intact. Verbalized understanding.
== END 2019-12-16 13:55 | disposition home or self-care (01) | DRG 854 ==
LOC: ER 12:23 → TELE 12:24 → EDBD 12:24 → TELE-CENTR 17:47
PROVIDERS: ADMIT Nurse Practitioner Acute Care; ATTEND Internal Medicine
PROC: 0FT44ZZ Resection of Gallbladder, Percutaneous Endoscopic Approach (ICD-10-PCS; principal; 2019-12-12 11:51)
DX: A41.9 Sepsis, unspecified organism (principal); E87.1 Hypo-osmolality and hyponatremia; E44.0 Moderate protein-calorie malnutrition; I48.92 Unspecified atrial flutter; N30.01 Acute cystitis with hematuria; K80.00 Calculus of gallbladder with acute cholecystitis without obstruction; I45.2 Bifascicular block; I48.91 Unspecified atrial fibrillation; I49.3 Ventricular premature depolarization; K59.00 Constipation, unspecified; N40.0 Benign prostatic hyperplasia without lower urinary tract symptoms; E03.9 Hypothyroidism, unspecified; K82.A1 Gangrene of gallbladder in cholecystitis; Z68.21 Body mass index [BMI] 21.0-21.9, adult; E87.6 Hypokalemia; Z79.01 Long term (current) use of anticoagulants; Z90.79 Acquired absence of other genital organ(s)
CPT/HCPCS: 36415; 71045; 71046; 74018; 74176; 76705; 80048; 80053; 81001; 82150; 82962; 83605; 83690; 83735; 83880; 84154; 84443; 84484; 85025; 85379; 85610; 85730; 86850; 86900; 86901; 87040; 87086; 93005; 93306; 93970; 97116; 97163; 97530; C9113; G0378; J0330; J0690; J0696; J2405; J2543; J3490